=== PATIENT | male | born 1980 | race Caucasian/White ===

== ENCOUNTER 2017-02-06 16:59 | Emergency (ER) | payer SELFPAY ==
[~2017-02-06] VITALS: Ht 177.8 cm; Wt 81.6 kg
--- NOTE | 2017-02-06 17:44 | NUR ---
SMALL LAC SITE WASHED W/ SALINE, NO BLOOD NOTED.
[2017-02-06 17:45] VITALS: BP 121/81
[2017-02-06] MEDS ORDERED: TDAP DIPH,PERTUSS,TET VAC/PF 0.5 ML DISP.SYRIN IM ONE ×2 (17:45→17:48)
[2017-02-06] MEDS ORDERED: NEOMY/BACITRA/POLYMYXIN B OINT UD PACKET TP ONE ×2 (17:45→17:56)
--- NOTE | 2017-02-06 17:47 | NUR ---
Patient discharged to home in stable conditon. Written and verbal after care instructions given. Patient verbalizes understanding of instructions.
== END 2017-02-06 17:48 | disposition home or self-care (01) ==
LOC: ER 16:59
DX: S51.831A Puncture wound without foreign body of right forearm, initial encounter (principal); Z88.6 Allergy status to analgesic agent; X58.XXXA Exposure to other specified factors, initial encounter; Y93.89 Activity, other specified; Y92.89 Other specified places as the place of occurrence of the external cause; Y99.8 Other external cause status
CPT/HCPCS: 90471; 90715; 99283; A4217; A4663